=== PATIENT | female | born 1990 | race Two or more races ===

== ENCOUNTER 2024-01-03 18:57 | Emergency (ER) | payer OTHER ==
[~2024-01-03] VITALS: Ht 157.5 cm; Wt 68.0 kg
[2024-01-03 19:16] VITALS: BP 116/74; O2SAT 98
[2024-01-03] MEDS ORDERED: ACETAMINOPHEN 325 MG TABLET PO STA (19:32)
[2024-01-03] MEDS ORDERED: ACETAMINOPHEN 500 MG GEL..CAP PO ONE (20:17)
[2024-01-03 20:32] LABS: HEMATOCRIT 39.6 % (36.0-45.00); HEMOGLOBIN 13.7 g/dL (12.0-15.00); MEAN CELL VOLUME 88.8 fL (80.00-100.00); MEAN CORPUSCULAR HEMOGLOBIN 30.8 pg (27.00-32.0); MEAN CORPUSCULAR HGB CONC 34.7 g/dl (32.0-36.0); PLATELET COUNT 207 K/uL (150-450); RED BLOOD COUNT 4.46 M/uL (4.00-6.00); RED CELL DISTRIBUTION WIDTH 14.3 % (11.5-14.5)
[2024-01-03] MEDS ORDERED: OSEL75CA PO (21:28)
== END 2024-01-03 21:51 | disposition home or self-care (01) ==
LOC: ER 18:59
DX: J02.9 Acute pharyngitis, unspecified (principal); Z20.822 Contact with and (suspected) exposure to COVID-19